=== PATIENT | female | born 1940 | race African-American/Black ===

== ENCOUNTER 2018-09-04 15:35 | Emergency (ER) | payer MEDICARE, MEDICAID ==
[~2018-09-04] VITALS: Ht 162.6 cm; Wt 77.0 kg
[~2018-09-04 15:35] MED LIST: ALBUTEROL; ASPI-1158 PO; ASPIRIN; AZOPT BOTHEYE; BIMA2.5D4 BOTHEYE; BRIM.2 BOTHEYE; COR12 PO; EMTR1TAB8 PO; FLUT1DIS3 IH; FOLI0.8T PO; FURO-151 PO; LEVO750T21 PO; LISI-186 PO; POTA20TA34 PO; RALT100T PO; SPIR25TA PO; TIOT18CA3 IH; VALP250C3 PO
[2018-09-04] MEDS ORDERED: HYDROCODONE/ACETAMINOPHEN 5/325MG TABLET PO ONE (16:30)
[2018-09-04] MEDS ORDERED: TETANUS, DIPHTHERIA, PERTUSSIS VAC/PF 0.5ML (>7YR OLD) IM ONE (16:45)
[2018-09-04] MEDS ORDERED: CHLORHEXIDINE GLUCONATE 0.12% MOUTHWASH UDC SSP SCH (17:00)
[2018-09-04 19:11] VITALS: BP 132/78
== END 2018-09-04 19:15 | disposition home or self-care (01) ==
LOC: ER 15:35
DX: S42.401A Unspecified fracture of lower end of right humerus, initial encounter for closed fracture (principal); S03.2XXA Dislocation of tooth, initial encounter; W01.0XXA Fall on same level from slipping, tripping and stumbling without subsequent striking against object, initial encounter; Y93.9 Activity, unspecified; Y92.9 Unspecified place or not applicable; M85.80 Other specified disorders of bone density and structure, unspecified site; B20 Human immunodeficiency virus [HIV] disease; I11.0 Hypertensive heart disease with heart failure; I50.9 Heart failure, unspecified; J44.9 Chronic obstructive pulmonary disease, unspecified; I25.2 Old myocardial infarction; Z79.82 Long term (current) use of aspirin
CPT/HCPCS: 29105; 73060; 73090; 73130; 90471; 90715; 99284